=== PATIENT | male | born 1965 | race Hispanic/Latino ===

== ENCOUNTER 2025-05-19 22:52 | Emergency (ER) | payer SELFPAY ==
[2025-05-19 23:26] VITALS: BP 201/102
--- NOTE | 2025-05-20 02:14 | ED.GENMED ---
History of Present Illness
General
Chief Complaint: Skin Problem
Source: patient
Exam Limitations: none
Time Seen by Provider: 05/20/25 01:54
Nursing documentation reviewed up to this point in time: agreed with
History of Present Illness
History of Present Illness:
Note:
CHIEF COMPLAINT(S)
Painful swelling on the chest wall.
HISTORY OF PRESENT ILLNESS
The patient is a 59-year-old male who presented with a tender swelling on the right lower chest wall that started several days ago. The patient reports the area is painful but denies experiencing any associated fever. He initially thought it was a
bug bite, or pimple and attempted to squeeze it, which aggravated the condition. He subsequently tried to gurwinder the spot, believing it was a cyst, but now describes the swelling as firm and indurated rather than soft or fluctuant. There was an
initial discharge of pus, but this has since ceased. There is no history of previous similar occurrences or recent insect bites, except for what was possibly a mosquito bite.
No history of similar episodes in the past.
CHRONIC MEDICAL CONDITIONS SIGNIFICANTLY AFFECTING CARE
The patient has a history of borderline hypertension noted in 2018, but he has not maintained regular follow-ups for this condition.
He takes no medicines on a daily basis.
SOCIAL HISTORY
The patient denies smoking or alcohol consumption.
PHYSICAL EXAM
- General: 59-year-old obese male appears his stated age. Awake and alert, easily communicative, in no acute distress.
- Skin: Warm, dry, with noted well-circumscribed area of erythema right anterior lower chest wall that measures 10 x 6 cm with a central area of dried eschar that is 3 x 2.5 cm. This area is moderately tender, firm, warm to touch. The area is
indurated without fluctuation.
- Cardiovascular: Normal peripheral perfusion, no edema.
- Respiratory: Respirations are non-labored.
- Gastrointestinal: Rotund, soft, nontender.
- Musculoskeletal: Normal range of motion, normal strength.
- Neurological: Alert and oriented to person, place, time, and situation. No focal neurological deficit observed.
- Psychiatric: Cooperative, appropriate mood and affect.
PROBLEM LIST
- Acute: Chest wall cellulitis and abscess formation.
- Chronic: Borderline hypertension. Moderate hypertension noted initially.
PLAN
- Initiate intravenous (IV) antibiotics for the chest wall infection.
- Conduct blood work to determine the extent of the infection and to guide further treatment.
- Monitor the swelling for changes that might warrant drainage at a later date if it becomes fluctuant.
- Provide IV analgesics for pain management.
- Possible hospital admission for IV antibiotic therapy depending on the results of blood work and clinical progress.
DIFFERENTIAL DIAGNOSIS
The Differential Diagnosis includes, in no particular order and is not limited to:
1. Cellulitis
2. Abscess
3. Insect bite with secondary infection
4. Folliculitis
5. Subcutaneous cyst infection
6. Impetigo
7. Herpes zoster
8. Dermatitis
9. Lymphangitis
10. Lipoma with secondary infection
Past History
Past History
ED Past Medical History: HTN
Social History
Tobacco: Non-smoker
Alcohol: None
Drug: None
Personal: Single
Living: alone
Employment: Not employed
Family History
Family History: Other (Noncontributory)
Phy Exam
Physical Exam
Physical Exam:
As above
Course
Orders/Labs/Results
Orders:
Orders
05/20/25 02:10
CR Chest - 2 Views Urgent
Comment:
Reason For Exam: RIGHT CHEST WALL ABSCESS, CELLULITIS, HTN
US Chest - Right Urgent
Comment:
Reason For Exam: chest wall abscess/cellulitis
05/20/25 02:12
0.9% Sodium Chloride 1000 ml [Nss] 1,000 ml IV BOLUS
Ketorolac [Toradol] 30 mg IV NOW STA
05/20/25 02:26
Complete Blood Count/With Diff Urgent
Comprehensive Metabolic Panel Urgent
Lactic Acid Urgent
05/20/25 02:31
Vancomycin [Vancocin] 2,000 mg 0.9% Sodium Chloride 500 ml [Nss] 500 ml IV NOW
Abnormal Lab Results
05/20/25
02:26
WBC 11.5 H 10^3/uL
(4.8-10.8)
Absolute Neuts (auto) 8.7 H 10^3/uL
(1.4-6.5)
Neutrophils % 75.7 H %
(42.2-75.2)
Lymphocytes % 17.1 L %
(20.5-51.1)
Carbon Dioxide 31 H mmol/L
(22-30)
Glucose 103 H mg/dl
(70-99)
05/20/25 02:26
05/20/25 02:26
Vital Signs
Initial and Last Documented VS:
Initial Vital Signs
Temp Pulse Resp BP Pulse Ox
99.2 F 69 16 201/102 96
05/19/25 23:26 05/19/25 23:26 05/19/25 23:26 05/19/25 23:26 05/19/25 23:26
Last Documented Vital Signs
Temp Pulse Resp BP Pulse Ox
99.2 F 81 18 173/76 97
05/19/25 23:26 05/20/25 03:13 05/20/25 03:13 05/20/25 05:00 05/20/25 05:01
*Radiology
Radiology exam reviewed: preliminary read by ED provider (Chest x-ray shows mild cardiomegaly otherwise unremarkable. Clear lung wright.) and radiology read reviewed (Ultrasound of right chest wall shows indurated edematous tissue but no definitive
abscess.)
*Pulse Oximetry
SaO2: 96
Oxygen Mode of Delivery: Room air
Patient hypoxic: no
*Critical Care Note
Total Time (30-74mins, 75-104mins- exclusive of procedures): Not Applicable
Update Note
Update Note:
04:00
Ultrasound shows indurated edematous tissue at right chest wall but no definitive abscess. No evidence of deep layer induration.
Labs are reassuring with mildly elevated white blood cell count of 11.5, unremarkable chemistries. Normal renal function, normal lactic acid. Random glucose normal at 103.
Blood pressure improving but patient continues with moderate systolic hypertension and I suspect longstanding essential hypertension.
Reassuring that there is no endorgan damage.
Chest x-ray shows mild cardiomegaly otherwise unremarkable.
Will plan to initiate a course of doxycycline as well as recommend local warm compresses to chest wall induration. Encouraged to avoid any further squeezing or poking at the area.
Will initiate losartan for hypertension.
Will refer to PCP for prompt follow-up.
Strict return precautions discussed.
ED Attending Note
-
Portions of this chart may have been created with voice recognition software.� Occasional wrong word or��sound alike� substitutions may have occurred due to the inherent limitations of voice recognition software.
Discharge Plan
Departure
Patient Disposition: Home (Routine Discharge)
Date of Disposition: 05/20/25
Time of Disposition: 05:27
Patient with high blood pressure during this ER visit?: Yes
Condition: Fair
Discharge Problem:
Cellulitis of chest wall, Accelerated essential hypertension
Instructions: High blood pressure in adults, Cellulitis (Skin Infection), Adult (DC)
Prescriptions:
New
doxycycline hyclate 100 mg capsule
100 mg PO BID Qty: 20 0RF
losartan 25 mg tablet
25 mg PO DAILY Qty: 30 0RF
Referrals:
Jose Antonio Pope MD [Family Provider, Family Practice] - Call in 1-3 days for appt
Interventions
Interventions:
*Risk Screen - Suicide Last Done: 07/28/25 23:26
*General Assessment Last Done: 05/20/25 02:18
*Neglect/Abuse Screening Last Done: 05/20/25 02:20
*ED- Fall Risk Assessment Last Done: 05/20/25 02:18
ED-Skin Assessment Last Done: 05/20/25 02:36
Discharge Date and Time
Print Language: CYMRAES
[2025-05-20 02:38] LABS: Hematocrit 45.0 % (39.0-52.0); Hemoglobin 14.9 g/dL (13.0-18.0); Mean Corp Hgb Conc. 33.1 g/dL (33.0-37.0); Mean Corpuscular Volume 84.7 fL (80.0-94.0); Nucleated Red Blood Cells % 0 % (-); Platelet Count 235 10^3/uL (130-400); Red Cell Dist. Width 12.7 % (11.5-14.5)
[2025-05-20] MEDS: VANCOCIN 540 MG IV (02:54)
[2025-05-20] MEDS: NSS 1000 IV (02:54)
[2025-05-20] MEDS: TORADOL 30 MG IV (02:54)
[2025-05-20 02:57] VITALS: BP 174/69
[2025-05-20 02:59] LABS: ALT (SGPT) 47 U/L (0-50); AST (SGOT) 24 U/L (17-59); Albumin 4.3 g/dl (3.5-5.0); Alkaline Phosphatase 79 U/L (38-126); Blood Urea Nitrogen 19 mg/dl (9-20); Calcium 8.8 mg/dl (8.4-10.2); Carbon Dioxide 31 mmol/L (22-30); Chloride 105 mmol/L (98-107); Estimated Creatinine Clearance 107 ml/min; Glucose 103 mg/dl (70-99); Potassium 3.8 mmol/L (3.5-5.1); Sodium 141 mmol/L (135-145); Total Protein 6.9 g/dl (6.3-8.2); eGFR > 60.00
[2025-05-20 03:01] VITALS: BP 182/88
[2025-05-20 04:00] VITALS: BP 170/74
[2025-05-20 05:00] VITALS: BP 173/76
== END 2025-05-20 05:40 | disposition home or self-care (01) ==
LOC: EMR 22:52
PROVIDERS: EMERGENCY PHYSICIAN Emergency Medicine; FAMILY PHYSICIAN Family Medicine
DX: L03.313 Cellulitis of chest wall (principal); I10 Essential (primary) hypertension
CPT/HCPCS: 96365; 96366; 96375; 99284; 71046; 76604; 80053; 83605; 85025